=== PATIENT | male | born 1965 | race Caucasian/White ===

== ENCOUNTER 2018-01-02 19:37 | Emergency (ER) ==
[2018-01-02 19:40] VITALS: BP 154/117; TEMP 98.3; BMI 29.5
[2018-01-02] MEDS ORDERED: BENTYL IM STA (19:52)
--- NOTE | 2018-01-02 20:54 | CT ---
EXAM: CT abdomen and pelvis without contrast. HISTORY: Abdominal pain. TECHNIQUE: Multi-slice transaxial helical CT. Coronal and sagittal reformatons were performed. COMPARISON: None FINDINGS: The heart is normal in size. Small nodular opacity in the medial right lung base measures up to 1.3 c m in size. Evaluation of the solid organs is limited without IV contrast. The spleen is normal in size. The ga llbladder appears contracted. Subtle hyperdensity is seen within the gallbladder neck region. No in trahepatic biliary ductal dilation is seen. No hydronephrosis or renal calculus is seen. The gallbl adder and the bilateral adrenal glands appear grossly unremarkable. The cecum appears dilated measuring up to 12.8 cm in diameter and contains an air-fluid level. A mil d thickening of the rectum is seen which measures up to 1.4 cm in thickness. Gaseous distension of th e transverse colon is seen which measures up to 5.0 cm in transverse diameter. No focal narrowing is seen within the transverse colon or cecum. 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 Reanastomosis of small bowel to the cecum is suggested. No pelvic free fluid is s een. No retroperitoneal adenopathy is seen. No definite small bowel thickening is seen. Diastases recti is present. Osseous structures appear unremarkable. IMPRESSION: 1. Distended cecum with prominent air-fluid level. This could be postoperative versus related to il eus. No distinct transition point. 2. Operative changes of the cecum/terminal ileum as detailed above. 3. No definite small bowel thickening. 4. Mild thickening of the rectum which could be related to nondistension versus proctitis. 5. 1.3 cm nodular opacity in the medial right lung base. Recommend follow-up CT chest in 3 months t o confirm persistence. 4. Contracted gallbladder with subtle hyperdensity in the gallbladder neck which may represent a tin y gallstone.
--- NOTE | 2018-01-02 21:10 | ED.PDOC ---
General ED Provider: Dr. DENISE VELASQUEZ-ER Chief Complaint: Abdominal Pain Stated Complaint: im hurting Time Seen by Physician: 19:40 Mode of Arrival: Walk-In Information Source: Patient, Family Exam Limitations: No limitations Nursing and Triage Documentation Reviewed and Agree: Yes Does patient meet sepsis criteria?: No System Inflammatory Response Syndrome: Not Applicable Sepsis Protocol: For patient's 13 years and over: Temp is 96.8 and below OR 101 and greater Pulse >90 BPM Resp >20/minute Acutely Altered Mental Status Are patient's symptoms suggestive of a new infection, such as: -Pneumonia -Skin, Soft Tissue -Endocarditis -UTI -Bone, Joint Infection -Implantable Device -Acute Abdominal Infection -Wound Infection -Meningitis -Blood Stream Catheter Infection -Unknown GI Complaint Exam - Abdominal Pain Complaint/Exam Onset: Gradual Duration: several hours Symptoms Are: Still present Timing: Intermittent Initial Severity: Mild Current Severity: Moderate Location of Pain: Diffuse Radiates To: Reports: Back Character: Reports: Dull, Aching, Cramping Alleviating: Reports: Spontaneous resolution Associated Signs and Symptoms: Denies: Diaphoresis, Fever, Cough, Chest pain, Dizziness, Back pain, Constipation, Blood in stool, Dysuria, Urinary frequency, Decreased urine output, Decreased appetite, Discharge, Nausea, Vomiting, Diarrhea, Decreased activity Quality Indicator For Non-Traumatic Chest Pain/Syncope: EKG Performed Review of Systems - Review Of Systems Constitutional: Reports: No symptoms Eyes: Reports: No symptoms Ears, Nose, Mouth, Throat: Reports: No symptoms Respiratory: Reports: No symptoms Cardiac: Reports: No symptoms GI: Reports: Abdomen distended : Reports: No symptoms Musculoskeletal: Reports: No symptoms Skin: Reports: No symptoms Neurological: Reports: No symptoms Endocrine: Reports: No symptoms Hematologic/Lymphatic: Reports: No symptoms All Other Systems: Reviewed and Negative Past Medical History - Past Medical History Previously Healthy: No Endocrine: Reports: Unknown Cardiovascular: Reports: Unknown Respiratory: Reports: Unknown Hematological: Reports: Unknown Gastrointestinal: Reports: Crohn's Genitourinary: Reports: Unknown Neuro/Psych: Reports: Unknown Musculoskeletal: Reports: Unknown Cancer: Reports: Unknown - Surgical History General Surgical History: Reports: Unknown - Family History Family History: Reports: Unknown - Social History Smoking Status: Never smoker Hx Substance Use: No Alcohol Screening: None Physical Exam - Physical Exam Appearance: Well-appearing, No pain distress, Well-nourished Pain Distress: Mild Eyes: AKSHAT, EOMI, Conjunctiva clear ENT: Ears normal, Nose normal, Oropharynx normal Neck: Supple Respiratory: Airway patent, Breath sounds clear, Breath sounds equal, Respirations nonlabored Cardiovascular: RRR, Pulses normal, No rub, No murmur GI/: Soft, Nontender, No masses, Bowel sounds normal, No Organomegaly Musculoskeletal: Normal strength Skin: Warm, Dry, Normal color Neurological: Sensation intact Psychiatric: Affect appropriate, Mood appropriate Interpretation - Radiology Interpretation Radiology Interpretation By: Radiologist Radiology Results: Positive Exam Interpreted: CT Scan - EKG Interpretation Time of EKG #1: 21:10 Rate: Normal Rhythm: Sinus Ectopy: None [place]: NL ST Segment: Normal Re-Evaluation - Re-Evaluation Time of Re-Evaluation: 21:10 Status: Improved Vital Signs Stable: Yes Pain Level: 1 Appearance: NAD Lungs: Clear Skin: Warm and Dry Neuro: Alert and Oriented X3 CV: RRR Critical Care Note - Critical Care Note Total Time (mins): 0 Course - Course Hematology/Chemistry: 01/02/18 20:05 01/02/18 20:05 Orders, Labs, Meds: Lab Review 01/02/18 01/02/18 01/02/18 20:05 20:05 20:24 WBC 8.62 RBC 4.72 Hgb 14.4 Hct 41.3 L MCV 87.5 MCH 30.5 MCHC 34.9 RDW Coeff of Elvia 12.5 Plt Count 182 Immature Gran % (Auto) 0.3 Neut % (Auto) 77.2 Lymph % (Auto) 16.8 Davidson % (Auto) 4.5 Eos % (Auto) 0.7 Baso % (Auto) 0.5 Immature Gran # (Auto) 0.0 Neut # (Auto) 6.7 Lymph # (Auto) 1.5 Davidson # (Auto) 0.4 Eos # (Auto) 0.1 Baso # (Auto) 0.0 Sodium 138 Potassium 3.8 Chloride 106 Carbon Dioxide 23 Anion Gap 12.8 BUN 11 Creatinine 0.84 Estimated GFR (MDRD) 97.00 BUN/Creatinine Ratio 13.09 Glucose 107 H Calcium 9.1 Total Bilirubin 0.4 AST 23 ALT 27 Alkaline Phosphatase 94 Total Creatine Kinase 108 Troponin I < 0.0100 Total Protein 7.8 Albumin 3.9 Globulin 3.9 Albumin/Globulin Ratio 1.00 Amylase 49 Lipase 32 Urine Color Yellow Urine Clarity Clear Urine pH 5.5 Ur Specific [place] 1.025 Urine Protein Negative Urine Glucose (UA) Negative Urine Ketones Negative Urine Blood Negative Urine Nitrite Negative Urine Bilirubin Negative Urine Urobilinogen 0.2 Ur Leukocyte Esterase Negative Orders Category Date Time Status EKG-(ED ONLY) Stat CARDIO 01/02/18 19:51 Completed AMYLASE Stat LAB 01/02/18 20:05 Completed CBC W/ AUTO DIFF Stat LAB 01/02/18 20:05 Completed COMPREHENSIVE METABOLIC PANEL Stat LAB 01/02/18 20:05 Completed CREATINE KINASE Stat LAB 01/02/18 20:05 Completed LIPASE Stat LAB 01/02/18 20:05 Completed TROPONIN I Stat LAB 01/02/18 20:05 Completed URINALYSIS C & S IF INDICATED Stat LAB 01/02/18 20:24 Completed Dicyclomine Inj [Bentyl] MEDS 01/02/18 19:52 Discontinued 20 mg IM ONCE STA CT ABDOMEN/PELVIS WO CONTRAST Stat RADS 01/02/18 19:52 Completed Medications Discontinued Medications Generic Name Dose Route Start Last Admin Trade Name Freq PRN Reason Stop Dose Admin Dicyclomine HCl 20 mg 01/02/18 19:52 01/02/18 20:25 Bentyl IM 01/02/18 19:53 20 mg ONCE STA Administration Vital Signs: Temp Pulse Resp BP Pulse Ox 01/02/18 19:37 98.3 F 89 18 154/117 H 98 Departure - Departure Time of Disposition: 21:11 Disposition: HOME SELF-CARE Discharge Problem: Abdominal pain, Abnormal gall bladder diagnostic imaging Instructions: Abdominal Pain (ED) Condition: Good Pt referred to PMD for follow-up: Yes IPMP verified?: No Additional Instructions: flagyl 250mg tid x 7 days---bentyl 10mg qid prn pain #30--low fat diet--talk to your pcp about ordering u/s of the gallbladder Allergies/Adverse Reactions: Allergies hydromorphone HCl [From Dilaudid] Adverse Reaction (Verified 01/02/18 19:43) morphine Adverse Reaction (Verified 01/02/18 19:43) Home Medications: Ambulatory Orders Acetaminophen [Acetaminophen Extra Strength] 1,000 mg PO TID 10/28/13 Docusate Sodium [Colace] 4 tab PO TID 10/28/13 Gabapentin 600 mg PO 1-3XD 10/28/13 Hydrocortisone [Proctocream-Hc] 30 gm RC TID 10/28/13 Lidocaine/Hydrocortisone AC [Lidocaine-Hc 3-0.5% Cream Kit] 1 each RC 2-3XD Mesalamine [Pentasa] 4 tab PO BID 10/28/13 Disposition Discussed With: Patient, Family
== END 2018-01-02 21:27 | disposition home or self-care (01) ==
LOC: ED 19:37
DX: R10.9 Unspecified abdominal pain (principal); R93.2 Abnormal findings on diagnostic imaging of liver and biliary tract; Z79.899 Other long term (current) drug therapy
CPT/HCPCS: 36415; 80053; 81001; 82150; 82550; 83690; 84484; 85025; 93005; 93010; 96372; 99283